=== PATIENT | female | born 1980 | race Caucasian/White ===

== ENCOUNTER 2024-11-20 12:04 | Emergency (ER) | payer MEDICAID, SELFPAY ==
[2024-11-20 12:06] VITALS: BMI 30.1
[2024-11-20 12:09] VITALS: BMI 30.1
[2024-11-20 12:17] VITALS: BP 164/99; PULSE 92; RESP 19; TEMP 36.9; O2SAT 97
--- NOTE | 2024-11-20 12:20 | XR_ITS ---
EXAMINATION: PA chest single view TECHNIQUE: Upright PA chest single view Date and time: November 20, 2024, 1236 hours INDICATIONS: Paresthesias left side of the face numbness in both arms SOB beginning 2 days ago FINDINGS: Normal heart size Lungs are clear. The osseous structures are intact IMPRESSION: No active disease
--- NOTE | 2024-11-20 12:20 | EKG_ITS ---
[facility] Test Date: 2024-11-20 Pat Name: FORTINO JOY Department: Room: - Gender: Female Dialer: : 1980 Requested By: Kt Ervin Order Number: [id number] Reading MD: Kt Ervin Measurements Intervals [address] Rate: 90 P: 75 [place]: 151 QRS: 43 QRSD: 73 T: 64 QT: 346 QTc: 425 Interpretive Statements SINUS RHYTHM POSSIBLE LEFT ATRIAL ENLARGEMENT [-0.1mV P-WAVE IN V1/V2] No previous ECG available for comparison /store/S0/[id number].pdf
--- NOTE | 2024-11-20 12:25 | PD.EDCHEST ---
ED Chest Pain RME/HPI General Chief Complaint: Neuro Symptoms/Deficit Stated Complaint: CHIN/ BOTTOM LIP AND BILAT ARM TINGLING Time Seen by Provider: 11/20/24 12:15 Arrival date/time: 11/20/24 12:04 RME / HPI RME / HPI narrative: 44-year-old female patient with significant history of diabetes mellitus, anxiety came in for evaluation regarding chest discomfort. Patient woke up this morning around 9 AM with numbness to the chin, tingling sensation to the left upper extremity, and chest discomfort, severity of symptoms mild. Patient denies any fever denies any shortness of breath denies any diaphoretic. Patient went to PCP, and was referred to us for evaluation to rule out OH. No medication was taken prior to ER visit. Related Data Allergies Allergy/AdvReac Type Severity Reaction Status Date / Time Penicillins Allergy Verified 11/20/24 12:11 Review of Systems Review of Systems Narrative Review of Systems: Review of system reviewed and within normal limits except mentioned in HPI ED Exam Narrative Physical exam: VITAL SIGNS: Reviewed. GENERAL APPEARANCE: Alert and interactive, follows commands, no acute distress, HEAD AND FACE: Non-traumatic. ENT: PERRL, pink conjunctivitis, eyelid no trauma, Mucous membrane moist. NECK: Supple, nontender, no nuchal rigidity. CHEST: + Left chest tenderness, no crepitus, no paradoxical movement, no retractions. LUNGS: Clear, well ventilated, symmetric, no rales, no wheezing, no ronchi, no stridor, good breath sounds bilaterally. HEART: Regular rate, regular rhythm, no murmur, no gallops. ABDOMEN: Soft, positive bowel sounds, nondistended, no guarding, nontender, no rebound, no masses, RECTAL: Deferred. GENITAL: Deferred. NEUROLOGICAL: Gross motor function intact sensory function intact, Appropriate for age. MUSCULOSKELETAL: low back nontender, full range of motion. EXTREMITIES: Nontender, full range of motion. SKIN: Color pink, dry, no rash, no lacerations, no abrasions, no contusions. LYMPHATICS: Deferred. Course Quality Measures none Orders Category Date Time Status EKG (ED ONLY) *Do not use* NOW Care 11/20/24 12:[address] head/brain wo con Stat Exams 11/20/24 14:18 Completed EKG (ED Only) Stat Exams 11/20/24 12:20 Draft XR chest 1V Stat Exams 11/20/24 12:20 Completed CBC Stat Lab 11/20/24 12:34 Results Comprehensive Metabolic Panel Stat Lab 11/20/24 12:34 Completed Partial Thromboplastin Time Stat Lab 11/20/24 12:34 [address] Review Blood Smear Stat Lab 11/20/24 12:34 Results Prothrombin Time with INR Stat Lab 11/20/24 12:34 Completed Troponin I Stat Lab 11/20/24 12:34 Completed Troponin I Stat Lab 11/20/24 14:29 Completed Urinalysis, C/S if Indicated Stat Lab 11/20/24 12:30 Completed Aspirin Med 11/20/24 12:20 Discontinued 325 mg PO X1 ONE Vital Signs Vital signs: Vital Signs Temperature 98.4 F 11/20/24 12:17 Pulse Rate 92 11/20/24 12:17 Respiratory Rate 19 11/20/24 12:17 Blood Pressure 164/99 H 11/20/24 12:17 Pulse Oximetry (%) 97 11/20/24 12:17 Oxygen Delivery Method Room Air 11/20/24 12:17 Chest Pain MDM Narrative MDM Narrative:: 44-year-old female patient with significant history of diabetes mellitus, anxiety came in for evaluation regarding chest discomfort. Patient woke up this morning around 9 AM with numbness to the chin, tingling sensation to the left upper extremity, and chest discomfort, severity of symptoms mild. Patient denies any fever denies any shortness of breath denies any diaphoretic. Patient went to PCP, and was referred to us for evaluation to rule out OH. No medication was taken prior to ER visit. EKG as interpreted by me showed sinus rhythm, ventricular rate of 90 bpm, GA interval 151 MS, QRS duration 73 MS, no ST segment elevation or depression noted. Laboratory workup including troponin x 2 all came back unremarkable. Except for slight anemia. CT scan of the head also came back normal. I personally reviewed and interpreted the x-ray of this patient. There is no acute abnormalities found, no infiltrates no pneumothorax no hemothorax normal chest x-ray. Review of other structures was without significant abnormal findings also. I additionally reviewed the radiologist report and agree with the interpretation. Results discussed with the patient.. Patient is stable for discharge home Patient data External records reviewed:: None Clinical information provided by:: patient and family Social determinants that could affect healthcare access:: none Patient has the following chronic illnesses:: anxiety How is presenting disease/condition affected by chronic disease/condition?: exacerbated by Evaluation data The following diagnostics were reviewed and interpreted by me:: lab results, radiology exam(s) and EKG tracing(s) Lab and/or radiology exams considered but not ordered:: None Interpretation Summary: See results MDM Medications / Prescriptions Medications or Prescriptions considered but not ordered:: None Medication administrations:: Medication Administration History Discontinued Medications Aspirin (Aspirin 325 Mg Tablet) 325 mg PO X1 ONE Stop: 11/20/24 12:21 Last Admin: 11/20/24 13:22 Dose: 325 mg Documented By: Aspirin Consultations Consultation(s) initiated? (list below): No Diagnosis Chest Pain Differential Diagnosis: unstable angina pectoris and atypical chest pain Most likely diagnosis given after review of the tests above:: Paresthesia, chest discomfort Admission Indicated Admission indicated?: not indicated Admission Request Was there a request for admission?: No Disposition Plan Disposition Plan: Discharge Discharge Attestation Discharge Attestation: The patient and all family members were given an opportunity to ask questions and understood the discharge instructions. Discharge instructions specifically effects, indications for sooner follow up or return to the emergency department, and the expected course of current diagnosis. Patient condition: Stable Discharge Plan Plan Patient Disposition: HOME (Self Care) Discharge Disposition comment: Stable Prescriptions/Referrals Referrals: Riana Padron FNP-C [Primary Care Provider] - In 1 week Problem List Clinical Impression: Paresthesia, Chest discomfort Patient/Caregiver Discharge Instructions Discharge Activity: activity as tolerated Education Materials: ED Paraesthesias Additional Instructions: Thank you for the opportunity for serving you today. You are stable for discharged . You are advised to: Follow-up with your PCP in 1 to 2 days Return to ED for worsening of symptoms Print Language: Spanish Stand Alone Forms: Niki Award Info., Patient Portal Info Letter OLIVER/ALLISON Supervising Physician ROCIO Supervising Physician: MD Martine
[2024-11-20 12:41] LABS: Collection Type, Urine Clean Catch
[2024-11-20 12:48] LABS: Basophils # (Auto) 0.0 Thou/mm3 (0.0-0.2); Basophils % (Auto) 0 % (0-2.5); Eosinophils # (Auto) 0.1 Thou/mm3 (0.0-0.5); Eosinophils % (Auto) 2 % (0-10); Hematocrit 35.3 % (36.0-46.0); Hemoglobin 10.4 g/dL (12.0-16.0); Immature Granulocytes Auto 0.04 Thou/mm3 (0.00-0.00); Lymphocytes # (Auto) 1.9 Thou/mm3 (1.0-4.8); Lymphocytes % (Auto) 25 % (10-50); Mean Corpuscular HGB Conc 29.5 g/dl (31.0-37.0); Mean Corpuscular Hemoglobin 19.7 pg (25.0-35.0); Mean Corpuscular Volume 67 fL (80-100); Monocytes # (Auto) 0.5 Thou/mm3 (0.0-0.8); Monocytes % (Auto) 7 % (0-12); Neutrophils # (Auto) 5.0 Thou/mm3 (1.8-7.7); Neutrophils % (Auto) 65 % (37-80); Nucleated Red Blood Cell # 0.00 Thou/mm3 (0.00-0.00); Nucleated Red Blood Cell % 0 /100 WBC (0); Platelet Count 231 Thou/mm3 (140-440); RDW Standard Deviation 41.0 fL (36.4-46.3); Red Blood Count 5.28 Miln/mm3 (4.00-5.20); White Blood Count 7.7 Thou/mm3 (3.6-11.0)
[2024-11-20 12:55] LABS: Bacteria,Urine Rare; Bilirubin,Urine Negative (Negative); Blood,Urine Negative (Negative); Clarity,Urine Clear (Clear/Hazy); Color,Urine Colorless (Lt Yel-Yel); Culture Indicated,Urine Not Indicated; Glucose, Urine 3+ (Negative); Ketones,Urine Negative (Negative); Leukocyte Esterase,Urine Negative (Negative); Nitrite,Urine Negative (Negative); PH,Urine 6.5 (5.0-7.0); Protein,Urine Negative (Neg - Trace); RBC,Urine 1 /hpf (0-3); Specific Gravity,Urine 1.006 (1.001-1.035); Squamous Epithelial Cell,Urine 2 /hpf (0-5); Urobilinogen,Urine Negative mg/dL (0.0-1.0); WBC,Urine 1 /hpf (0-5)
[2024-11-20 13:11] LABS: Alanine Aminotransferase 12 U/L (10-49); Albumin, Serum 4.5 gm/dL (3.5-5.0); Albumin/Globulin Ratio 1.9 (1.2-2.2); Alkaline Phosphatase 86 U/L (46-116); Anion Gap 11 (7-16); Aspartate Amino Transferase 16 U/L (0-34); BUN/Creatinine Ratio 10 Ratio (12-20); Bilirubin,Total 0.2 mg/dL (0.3-1.2); Blood Urea Nitrogen 7 mg/dL (9-23); Calcium 9.0 mg/dL (8.3-10.6); Calcium (Corrected) 9.0 mg/dL (8.5-10.1); Carbon Dioxide 23.2 mMol/L (20.0-31.0); Chloride 106 mMol/L (98-107); Creatinine (Component) 0.7 mg/dL (0.6-1.3); Estimated Creatinine Clearance 98.7 mL/min (>60); Globulin 2.4 gm/dL (2.3-3.5); Glucose 118 mg/dL (74-106); Osmolality,Calculated 278 (275-295); Potassium 4.1 mMol/L (3.4-5.1); Sodium 140 mMol/L (136-145); Total Protein 6.9 gm/dL (5.7-8.2); Troponin I < 0.002 ng/mL (0.0-0.045); eGFR > 60 See Note
[2024-11-20 13:23] LABS: INR 0.9 (0.9-1.3); Partial Thromboplastin Time 23.9 Seconds (22.0-36.0); Prothrombin Time 9.8 Seconds (9.0-12.2)
--- NOTE | 2024-11-20 14:18 | XR_ITS ---
Examination: CT brain head without contrast. 2-D sagittal coronal reconstructions Date and time of exam: November 20, 2024, 1506 hours INDICATIONS: Onset facial numbness today CTDI: vol (mGy): 44.9 DLP: (mGycm): 845 Technique: Multiple CT axial sections of the brain have been obtained, 5 mm slice thickness. Contrast has not been administered. 2-D sagittal, coronal reconstructions have been obtained Low dose protocols were performed. One or more of the following dose reduction techniques were used; automated exposure control, adjustment of the mA and/or KV according to patient size, use of iterative reconstruction technique. Findings: No significant ventricular enlargement. Intra-axial or extra-axial hemorrhage density is not seen. No mass effect or midline shift Basal cisterns are not remarkable. Fourth ventricle is midline. Cranial vault intact. Impression: Negative for acute hemorrhage, mass effect or midline shift As clinically warranted, brain MRI follow-up would best assess for demyelinating disease
[2024-11-20 15:10] LABS: Troponin I < 0.002 ng/mL (0.0-0.045)
[2024-11-20 15:47] VITALS: BP 128/70; PULSE 75; RESP 19; TEMP 36.9; O2SAT 98
[2024-11-20 15:58] LABS: Path Review Blood Smear Sent to Pathologist
== END 2024-11-20 16:10 | disposition home or self-care (01) ==
PROVIDERS: Nurse Practitioner Family; Emergency Provider Family Medicine; PCP Nurse Practitioner Family
DX: R20.2 Paresthesia of skin (principal); R07.89 Other chest pain; R06.02 Shortness of breath; R20.0 Anesthesia of skin
CPT/HCPCS: 36415; 70450; 71045; 80053; 81001; 84484; 85025; 85610; 85730; 93005; 99284; A9270

== ENCOUNTER → 2025-01-19 | Outpatient (CLI) | payer MEDICAID, SELFPAY ==
[2025-01-19 15:04] LABS: HCG Qualitative,Urine Negative
--- NOTE | 2025-01-19 15:15 | XR_ITS ---
Examination: MRI of brain without intravenous contrast. MRI brain with intravenous contrast. Date and time of exam: January 19, 2025, 1706 hours INDICATIONS: Facial paresthesias occipital headaches 2 months Technique: Multiple axial and sagittal images of the brain to been obtained. Siemens high-resolution 1.52 Urszula short bore scanner utilized. Sagittal sections, T1 weighted images, TR 500, TE 14, are performed. Axial sections proton-density and T2-weighted images have been obtained. Inversion recovery axial images, TR 9260, TE 111, TR 2500. Diffusion weighted images, axial sections, TR 4800, TE 128, B value 1000. Axial sections, ADC map, TR 4800, TE 128. Axial and coronal images were also obtained post 15 cc gadolinium administered intravenously. Findings:: Enlargement of the sella turcica is not present. The optic chiasm and infundibular stalk are not remarkable. There is no localized enlargement of the medulla or imelda. Fourth ventricle and cerebellar tonsils appear normal in position. No subacute area of hemorrhage density is seen. Fourth ventricle is midline. Mass in the cerebellopontine angle region is not evident. 7th and 8th nerve complexes exhibit symmetry Globes are symmetrical Orbital musculature including medial lateral rectus muscles do not exhibit abnormality Increased white matter signal is not seen Effacement of the cortical sulcal markings is not identified. Mass effect upon the ventricular system is not identified. Diffusion-weighted images demonstrate no focus of restricted diffusion Contrast images demonstrate no abnormal cerebral or cerebellar enhancement Impression: Negative for acute hemorrhage mass effect or midline shift No acute infarct No MR findings of demyelinating disease Left mastoiditis
== END | disposition home or self-care (01) ==
PROVIDERS: PCP Nurse Practitioner Family; Referring Provider Nurse Practitioner Family; Visit Provider Nurse Practitioner Family
DX: H70.92 Unspecified mastoiditis, left ear (principal); Z32.00 Encounter for pregnancy test, result unknown
CPT/HCPCS: 70553; 81025; A9577